=== PATIENT | male | born 1985 | race Caucasian/White ===

== ENCOUNTER 2023-08-28 01:55 | Emergency (ER) | payer MEDICAID ==
[~2023-08-28] VITALS: Ht 167.6 cm; Wt 99.8 kg
[2023-08-28 02:00] VITALS: BP 148/76; PULSE 67; RESP 16; TEMP 97.4; O2SAT 99
[2023-08-28] MEDS ORDERED: KETOROLAC 30 MG/ML VIAL IM ONE (03:15)
[2023-08-28] MEDS ORDERED: LIDOCAINE 5% 1 EA PATCH TP ONE (03:15)
[2023-08-28] MEDS ORDERED: LID5T TP (04:35)
[2023-08-28] MEDS ORDERED: IBUP-2213 PO (04:35)
[2023-08-28] MEDS ORDERED: CYCL-711 PO (04:35)
[2023-08-28 05:08] VITALS: BP 148/76; PULSE 67; RESP 16; TEMP 97.4; O2SAT 99
== END 2023-08-28 05:08 | disposition home or self-care (01) ==
LOC: MED 01:55
DX: M54.32 Sciatica, left side (principal); Z79.899 Other long term (current) drug therapy
CPT/HCPCS: 96372; 99283; J1885

== ENCOUNTER 2023-11-03 11:37 | Emergency (ER) | payer BC, MEDICAID ==
[~2023-11-03] VITALS: Ht 162.6 cm; Wt 92.5 kg
[~2023-11-03 11:37] MED LIST: CYCL-711 PO; IBUP-2213 PO; LID5T TP
[2023-11-03 12:00] VITALS: BP 161/109; PULSE 98; RESP 16; TEMP 98.8; O2SAT 98
[2023-11-03 12:53] LABS: BASOPHILS % (AUTO) 0.2 % (0.0-2.0); EOSINOPHILS % (AUTO) 0.2 % (0.0-4.0); HEMATOCRIT 38.8 % (36-52); LYMPHOCYTES # (AUTO) 1.1 K/uL (2.0-11.5); LYMPHOCYTES % (AUTO) 13.1 % (20.5-51.1); MEAN CORPUSCULAR HEMOGLOBIN 30 pg (27-31); MEAN CORPUSCULAR HGB CONC 36 g/dL (33-37); MEAN CORPUSCULAR VOLUME 84.4 fL (80-94); MONOCYTES # (AUTO) 0.5 K/uL (0.8-1.0); NEUTROPHILS % (AUTO) 80.5 % (42.2-75.2); PLATELET COUNT (AUTO) 234 K/uL (140-450); RED CELL DISTRIBUTION WIDTH 14.2 % (11.6-13.7); WHITE BLOOD COUNT (AUTO) 8.7 K/uL (4.8-10.8)
[2023-11-03 13:08] LABS: ANION GAP 12.9 (8-16); CARBON DIOXIDE 27.7 mmol/L (21-32); CREATININE 0.9 mg/dL (0.6-1.3); POTASSIUM 3.6 mmol/L (3.5-5.1)
[2023-11-03 13:16] LABS: ALANINE AMINOTRANSFERASE 67 U/L (12-78); ALKALINE PHOSPHATASE 60 U/L (50-136); ASPARTATE AMINOTRANSFERASE 21 U/L (15-37); BILIRUBIN,DIRECT 0.2 mg/dL (0.0-0.3); TOTAL BILIRUBIN 1.1 mg/dL (0.0-1.0); TOTAL PROTEIN, SERUM 8.4 g/dL (6.4-8.2)
[2023-11-03] MEDS ORDERED: NAPR-1704 PO (13:45)
[2023-11-03] MEDS ORDERED: AMLO10TA89 PO (13:45)
[2023-11-03 14:28] VITALS: BP 149/85; PULSE 92; RESP 20; O2SAT 99
== END 2023-11-03 14:28 | disposition home or self-care (01) ==
LOC: MED 11:37
DX: M25.511 Pain in right shoulder (principal); R07.9 Chest pain, unspecified; E11.9 Type 2 diabetes mellitus without complications; I10 Essential (primary) hypertension; Z79.4 Long term (current) use of insulin; Z79.899 Other long term (current) drug therapy
CPT/HCPCS: 36415; 71045; 80048; 80076; 82948; 83880; 84484; 85025; 93005; 99285; Q0092